=== PATIENT | female | born 1990 | race Caucasian/White ===

== ENCOUNTER 2018-03-18 07:32 | Inpatient (IN) | payer BC ==
[~2018-03-18 07:32] MED LIST: ROPIVACAINE 0.5 % 30 ML VIAL
[2018-03-18] MEDS ORDERED: BUTORPHANOL 2 MG INJ IV (08:00)
[2018-03-18] MEDS ORDERED: CARBOPROST 250 MCG INJ IM (08:00)
[2018-03-18] MEDS ORDERED: MISOPROSTOL 200 MCG TAB PR (08:00)
[2018-03-18] MEDS ORDERED: OXYTOCIN 30 UNITS/LR 500 ML IV (08:00)
[2018-03-18] MEDS ORDERED: LIDOCAINE 1% (MPF) 30 ML INJ INJ (08:00)
[2018-03-18] MEDS: LACTATED RINGER'S 1,000 ML IV ×4 (08:30→22:12)
[2018-03-18 08:56] LABS: ADD MAN DIFF? NO
[2018-03-18 09:20] LABS: GLUCOSE 76 mg/dl (70-220)
[2018-03-18 09:23] LABS: INR 0.94; PROTIME 12.7 Sec (11.9-14.9)
[2018-03-18 09:24] LABS: PARTIAL THROMBOPLASTIN TIME 22.9 Sec (23.0-35.0)
[2018-03-18 09:27] LABS: BASOPHILS % 0.3 % (0.0-2.0); EOSINOPHILS # 0.1 10^3/ul (0.0-0.5); EOSINOPHILS % 0.5 % (0.0-7.0); HEMATOCRIT 39.6 % (37.0-47.0); HEMOGLOBIN 12.9 g/dl (12.0-16.0); LYMPHOCYTES # 1.2 10^3/ul (0.8-2.9); LYMPHOCYTES % 12.7 % (15.0-51.0); MEAN CORPUSCULAR HEMOGLOBIN 28.2 pg (29.0-33.0); MEAN CORPUSCULAR HGB CONC 32.6 g/dl (32.0-37.0); MEAN CORPUSCULAR VOLUME 86.7 fl (82.0-101.0); MEAN PLATELET VOLUME 12.3 fl (7.4-10.4); MONOCYTE # 0.7 10^3/ul (0.3-0.9); NEUTROPHIL # 7.6 10^3/ul (1.6-7.5); NEUTROPHILS % 78.9 % (39.0-77.0); PLATELET COUNT 176 10^3/UL (140-415); RED BLOOD COUNT 4.57 10^6/ul (4.20-5.40); RED CELL DISTRIBUTION WIDTH 13.4 % (11.5-14.5)
[2018-03-18 09:27] LABS: WHITE BLOOD COUNT 9.7 10^3/ul (4.8-10.8)
[2018-03-18] MEDS: MISOPROSTOL 50 MCG CAPSULE PO ×4 (09:40→22:59)
[2018-03-18 15:12] LABS: RAPID PLASMA REAGIN NONREACTIVE (NR)
[2018-03-18 22:16] LABS: HEPATITIS B SURFACE ANTIGEN NEGATIVE (NEGATIVE)
[2018-03-18] MEDS ORDERED: ONDANSETRON 4 MG INJ IV (22:30)
[2018-03-18] MEDS ORDERED: HYDROmorphONE 0.5 MG/0.5 ML SYG IV ×2 (22:30)
[2018-03-18] MEDS ORDERED: NALOXONE (0.4 MG/ML) INJ IV (22:30)
[2018-03-18] MEDS ORDERED: ZOLPIDEM 5 MG TAB PO (22:30)
[2018-03-18] MEDS ORDERED: DIPHENHYDRAMINE 50 MG INJ IV (22:30)
[2018-03-18] MEDS ORDERED: KETOROLAC 30 MG INJ IV (22:30)
[2018-03-18] MEDS: FENTAnyl 2MCG/ML-ROPIV 0.2% 100 ML BAG EPI (22:59)
[2018-03-19] MEDS: OXYTOCIN 30 UNITS/LR 500 ML IV ×3 (00:40→03:00)
[2018-03-19] MEDS ORDERED: DEXTROSE 5%-LR 1,000 ML IV ×2 (00:41)
[2018-03-19] MEDS: LACTATED RINGER'S 1,000 ML IV* ×2 (02:39→06:23)
[2018-03-19] MEDS: METHYLERGONOVINE 0.2 MG INJ IM (02:39)
[2018-03-19] MEDS ORDERED: ACETAMINOPHEN 325 MG TAB PO ×2 (03:00)
[2018-03-19] MEDS ORDERED: DIBUCAINE 1% 30 GM OINT TOP (03:00)
[2018-03-19] MEDS ORDERED: MISOPROSTOL 200 MCG TAB PR (03:00)
[2018-03-19] MEDS ORDERED: HYDROCODONE/APAP (5/325) TAB PO ×2 (03:00)
[2018-03-19] MEDS ORDERED: METHYLERGONOVINE 0.2 MG INJ IM (03:00)
[2018-03-19] MEDS ORDERED: OXYTOCIN 30 UNITS/LR 500 ML IV (03:00)
[2018-03-19] MEDS ORDERED: ONDANSETRON 4 MG INJ IV (03:00)
[2018-03-19] MEDS ORDERED: ONDANSETRON 4 MG TAB PO (03:00)
[2018-03-19] MEDS ORDERED: CARBOPROST 250 MCG INJ IM (03:00)
[2018-03-19] MEDS ORDERED: DIPHENHYDRAMINE 25 MG CAP PO (03:00)
[2018-03-19] MEDS: IBUPROFEN 800 MG TAB PO ×3 (06:00→18:00)
[2018-03-19] MEDS: BENZOCAINE 20% 56 ML SPRAY TOP (06:40)
[2018-03-19] MEDS: ACCU-CHEK XX ×4 (07:52→15:10)
[2018-03-19] MEDS: LANOLIN 7 GM TUBE TOP (08:39)
[2018-03-19] MEDS: SENNA/DOCUSATE NA (8.6MG/50MG) TAB PO (08:39)
[2018-03-20] MEDS: MAGNESIUM HYDROXIDE 30ML CUP PO ×2 (00:40→09:27)
[2018-03-20] MEDS: IBUPROFEN 800 MG TAB PO ×5 (00:40→23:21)
[2018-03-20] MEDS: SENNA/DOCUSATE NA (8.6MG/50MG) TAB PO (09:27)
[2018-03-20] MEDS: ACCU-CHEK XX ×3 (10:05→20:05)
[2018-03-21] MEDS: IBUPROFEN 800 MG TAB PO ×2 (05:47→11:38)
[2018-03-21] MEDS: ACCU-CHEK XX ×2 (07:30→10:05)
[2018-03-21] MEDS: VARICELLA VACCINE LIVE/PF 1,350 UNIT/0.5 ML ML SC* (09:11)
[2018-03-21] MEDS: MEASLES,MUMPS,RUBELLA VACCINE INJ SC* (09:11)
[2018-03-21] MEDS: SENNA/DOCUSATE NA (8.6MG/50MG) TAB PO (10:07)
[2018-03-21] MEDS ORDERED: LANOLOLIN HPA 1 PKT TOP (10:09)
[2018-03-21] MEDS: BENZOCAINE 20% 56 ML SPRAY TOP (10:13)
[2018-03-21] MEDS: WITCH HAZEL/GLYCERIN PAD PR (10:13)
[2018-03-21] MEDS: LANOLOLIN HPA 1 PKT TOP (10:14)
[2018-03-21] MEDS: DIPHTH/TET/ACEL PERTUSS (ADULT) 0.5 ML VIAL IM* (11:38)
== END 2018-03-21 13:39 | disposition home or self-care (01) | DRG 807 ==
LOC: L-D 07:32 → PP1 03-19 06:11
PROVIDERS: Obstetrics & Gynecology
PROC: 10E0XZZ Delivery of Products of Conception, External Approach (ICD-10-PCS; principal; 2018-03-18 07:30)
PROC: 0HQ9XZZ Repair Perineum Skin, External Approach (ICD-10-PCS; 2018-03-18 07:30)
PROC: 3E033VJ Introduction of Other Hormone into Peripheral Vein, Percutaneous Approach (ICD-10-PCS; 2018-03-18 07:30)
DX: O24.429 Gestational diabetes mellitus in childbirth, unspecified control (principal); Z37.0 Single live birth; O70.0 First degree perineal laceration during delivery; Z3A.39 39 weeks gestation of pregnancy
CPT/HCPCS: 62319; 76815; 82947; 82962; 85014; 85018; 85025; 85610; 85730; 86592; 86850; 86900; 86901; 86920; 87340; 90686; 90715; 90716